=== PATIENT | male | born 1945 | race Hispanic/Latino ===

== ENCOUNTER 2024-06-13 08:26 | Day surgery (SDC) | payer OTHER ==
[~2024-06-13] VITALS: Ht 157.5 cm; Wt 68.0 kg
[2024-06-13] VITALS (10 sets, daily range): BP systolic 105–152; BP diastolic 46–72; PULSE 60–67; RESP 14–17; TEMP 97–98.7
[2024-06-13] MEDS ORDERED: SUCR500T PO (09:15)
[2024-06-13] MEDS ORDERED: ICOS1CAP2 PO (09:15)
[2024-06-13] MEDS ORDERED: ATOR10 PO (09:15)
[2024-06-13] MEDS ORDERED: FOLI0.8T22 PO (09:15)
[2024-06-13] MEDS ORDERED: PANT40TA54 PO (09:15)
[2024-06-13] MEDS ORDERED: AMLO-258 PO (09:15)
[2024-06-13] MEDS ORDERED: LABE100T7 PO (09:15)
[2024-06-13] MEDS ORDERED: 0.9%NACL 1000ML 1,000 ML IV ONE ×2 (09:48→09:51)
[2024-06-13] MEDS ORDERED: proPOFol 10 MG/ML 20ML VIAL IV ONE (10:03)
--- NOTE | 2024-06-13 11:55 | NUR ---
FULL AND COMPLETE DISCHARGE INSTRUCTIONS GIVEN TO PATIENT AND FAMILY BOTH VERBALLY AND IN WRITING. VOICED UNDERSTANDING TO GI PROCEDURE PRECAUTIONS AND FOLLOW UP PIV REMOVED WITH CATHETER TIP INTACT. DISCHARGE INSTRUCTIONS GIVEN TO PATIENT AND FAMILY IN BOTH [place] AND [facility]. W/C WITH FAMILY TO POV TO HOME.
== END 2024-06-13 11:55 | disposition home or self-care (01) ==
LOC: ENDO 08:26 → DAH 08:38 → ENDO 11:55
PROVIDERS: ATTEND Internal Medicine Gastroenterology
DX: R93.3 Abnormal findings on diagnostic imaging of other parts of digestive tract (principal); R94.5 Abnormal results of liver function studies; I12.0 Hypertensive chronic kidney disease with stage 5 chronic kidney disease or end stage renal disease; E11.22 Type 2 diabetes mellitus with diabetic chronic kidney disease; N18.6 End stage renal disease; E78.00 Pure hypercholesterolemia, unspecified; K21.9 Gastro-esophageal reflux disease without esophagitis; Z86.0100 Personal history of colon polyps, unspecified; Z79.899 Other long term (current) drug therapy; Z98.890 Other specified postprocedural states
CPT/HCPCS: 82948 ×2; 43237; J7030 ×2; J2704; A4620; A4215; J3490